=== PATIENT | female | born 1980 | race Caucasian/White ===

== ENCOUNTER → 2021-02-12 14:58 | Outpatient (CLI) | payer BC, SELFPAY ==
--- NOTE | ~2021-02-12 | MM_ITS ---
EXAMINATION: MM screening phil BI w lelo HISTORY: Screening mammogram TECHNIQUE: Craniocaudal and mediolateral oblique 3-D tomosynthesis images were obtained and synthetic 2-D images were generated. CAD analysis was submitted and interpreted. COMPARISON: None, baseline BREAST PARENCHYMAL COMPOSITION: There are scattered areas of fibroglandular density. FINDINGS: There are multiple similar appearing low-density circumscribed masses in both breasts, like ly cysts. An asymmetry is present in the middle third of the central left breast 7.5 cm from the nipp le on the craniocaudal view in line with the nipple axis. IMPRESSION: 1. Left breast asymmetry. 2. Additional mammographic views and possible breast ultrasound are recommended to evaluate for malig breezy and establish a baseline given that this is the first mammographic examination. BI-RADS Category 0: Incomplete: Needs additional imaging evaluation. Reviewed, dictated and finalized at location A. IMPRESSION: 1. Left breast asymmetry. 2. Additional mammographic views and possible breast ultrasound are recommended to evaluate for malignancy and establish a baseline given that this is the fir st mammographic examination. BI-RADS Category 0: Incomplete: Needs additional imaging evaluation.
== END ==
PROVIDERS: PCP Family Medicine; Visit Provider Obstetrics & Gynecology
DX: Z12.31 Encounter for screening mammogram for malignant neoplasm of breast (principal); R92.8 Other abnormal and inconclusive findings on diagnostic imaging of breast
CPT/HCPCS: 77063; 77067

== ENCOUNTER 2021-03-10 08:22 | Outpatient (CLI) | payer BC, SELFPAY ==
--- NOTE | ~2021-03-10 | MMUS_ITS ---
EXAMINATION: MM diagnostic phil LT w lelo, US breast LT complete HISTORY: Follow-up left breast asymmetry TECHNIQUE: Additional 3-D tomosynthesis images of the left breast were performed and synthetic 2-D im ages were generated. CAD analysis was submitted and interpreted. High resolution complete left breast ultrasound was performed. COMPARISON: 02/12/2021 BREAST PARENCHYMAL COMPOSITION: Breast composed of scattered areas of fibroglandular density. FINDINGS: MAMMOGRAPHIC FINDINGS: There is persistent asymmetry centrally in the left breast on CC view, not definitely seen on medial lateral view. No suspicious mass or architectural distortion. ULTRASOUND: Complete left breast ultrasound: At 6:00, 6 cm from the nipple, there is an oval circumscribed hypoec hoic mass with echogenic hilum, parallel orientation, no internal vascularity and no significant post erior features, likely benign intramammary lymph node. IMPRESSION: 1. Probable benign findings of the left breast. 2. Recommend 6 month follow-up diagnostic left mammogram and ultrasound BI-RADS category 3, probably benign findings. Reviewed, dictated and finalized at location A. IMPRESSION: 1. Probable benign findings of the left breast. 2. Recommend 6 month follow-up diagnostic left mammogram and ultrasound BI-RADS category 3, probably benign findings.
== END 2021-03-10 08:23 ==
PROVIDERS: PCP Family Medicine; Visit Provider Obstetrics & Gynecology
DX: R92.8 Other abnormal and inconclusive findings on diagnostic imaging of breast (principal)
CPT/HCPCS: 76641; 77061; 77065; G0279

== ENCOUNTER → 2021-09-01 07:56 | Outpatient (CLI) | payer BC, SELFPAY ==
--- NOTE | ~2021-09-01 | MMUS_ITS ---
EXAMINATION: MM diagnostic phil LT w lelo, US breast LT limited HISTORY: Follow-up left breast mass. TECHNIQUE: Additional 3-D tomosynthesis images of the left breast were performed and synthetic 2-D im ages were generated. CAD analysis was submitted and interpreted. High resolution Limited left breast ultrasound was performed. COMPARISON: Comparison to multiple prior studies sequentially, with oldest reviewed study dated 02/12. BREAST PARENCHYMAL COMPOSITION: Breast composed of scattered areas of fibroglandular density. FINDINGS: MAMMOGRAPHIC FINDINGS: There are no suspicious masses, calcifications or architectural distortion in the left breast to sugg est malignancy. ULTRASOUND: There is a stable benign-appearing 9 mm intramammary lymph node at 6:00, 6 cm from the nipple no susp icious masses to suggest malignancy. IMPRESSION: 1. No evidence for malignancy in the left breast. 2. Routine yearly screening mammogram and regular clinical breast examination are recommended. BI-RADS Category 2: Benign finding(s). Reviewed, dictated and finalized at location A. DING PARTNER IMPRESSION: 1. No evidence for malignancy in the left breast. 2. Routine yearly screening mammogram and regular clinical breast examination a re recommended. BI-RADS Category 2: Benign finding(s).
== END ==
PROVIDERS: PCP Family Medicine; Visit Provider Obstetrics & Gynecology
DX: R92.8 Other abnormal and inconclusive findings on diagnostic imaging of breast (principal)
CPT/HCPCS: 76642; 77061; 77065; G0279

== ENCOUNTER 2023-06-19 09:02 | Emergency (ER) | payer BC, SELFPAY ==
[2023-06-19 09:18] VITALS: BP 126/82; PULSE 93; RESP 16; TEMP 36.7; O2SAT 99
--- NOTE | 2023-06-19 10:03 | ED.GENADULT ---
HPI - General Adult General Chief complaint: Upper Respiratory Infection Stated complaint: cough,sore throat Time Seen by Provider: 06/19/23 10:03 Source: patient Mode of arrival: ambulatory Limitations: no limitations History of Present Illness HPI narrative: 43-year-old patient presents to [facility] today with complaints of cough and sore throat. Patient states she always has URI sinus drainage as she has chronic sinusitis but on Wednesday she started with a cough and sore throat. Patient states she has been trying trying xmiv-bfv-mmymzyl cough medicines such as DayQuil and NyQuil to help with the symptoms. Patient reports taking daily Claritin for her allergy symptoms. Patient also reports using Flonase. patient denies fevers, chest pain, dyspnea. Denies abdominal pain nausea, vomiting or diarrhea. Denies body aches and chills Related Data Home Medications Medication Instructions Recorded Confirmed atorvastatin 10 mg tablet 10 mg PO DAILY 06/19/23 06/19/23 irbesartan 150 1 tablet PO DAILY 06/19/23 06/19/23 mg-hydrochlorothiazide 12.5 mg tablet norethindrone 1 mg-ethinyl 1 tablet PO DAILY 06/19/23 06/19/23 estradiol 35 mcg tablet (Alyacen) sertraline 100 mg tablet 100 mg PO DAILY 06/19/23 06/19/23 Allergies Allergy/AdvReac Type Severity Reaction Status Date / Time No Known Allergies Allergy Unknown Verified 06/19/23 09:20 Review of Systems Review of Systems: CONSTITUTIONAL: Denies fever, chills, or sweats. EYES: Denies visual changes, redness, or discharge. ENT: Positive rhinorrhea, congestion, sore throat, or otalgia and feeling of fullness a bilateral ears. CARDIOVASCULAR: Denies chest pain, palpitations, or edema. RESPIRATORY: Positive cough, and negative for dyspnea. GASTROINTESTINAL: Denies abdominal pain, nausea, vomiting, or diarrhea. GENITOURINARY: Denies dysuria or hematuria. SKIN: Denies rash or itching. MUSCULOSKELETAL: Denies back pain, joint pain, or myalgia. NEUROLOGIC: Denies headache, numbness, or weakness. PSYCHIATRIC: Denies anxiety or depression. FORMERLY [facility], 1928–1983 Family History Family History (Updated 08/10/17 @ 16:56 by DOCTOR UNKNOWN) Father Diabetes mellitus Hypertension Family history of cardiovascular disease Sibling Diabetes mellitus Hypertension Mother Hypertension Social History Social History Smoking status: Never smoker Alcohol intake: never Exam Narrative: GENERAL: Well-appearing, well-nourished, and in no acute distress. HEAD: Normocephalic, atraumatic. EYES: PERRLA and EOMI. ENT: Nares clear, no rhinorrhea or of the right nare epistaxis. Mucous membranes moist. Bilateral ears TMs visualized pearly melchor with air bubbles, no signs of erythema or edema. Bilateral external ear canals are free of drainage, erythema, and edema. Oral mucosa is pink and moist, posterior oropharynx is has erythema with clear drainage, tonsils at 1+ position without exudate. NECK: Supple. No lymphadenopathy CHEST: Clear to auscultation. No respiratory distress. HEART: Regular rate and rhythm. No murmur heard. Normal peripheral pulses. ABDOMEN: Soft, nontender, nondistended, normal active bowel sounds. EXTREMITIES: Normal range of motion. No edema. SKIN: Warm, dry, no rash. NEURO: No focal deficits. Alert and oriented x3. Course Course Level of Care: Express Care Visit Vital Signs Vital signs: Vital Signs Temperature 36.7 C 06/19/23 09:18 Pulse Rate 93 06/19/23 09:18 Respiratory Rate 16 06/19/23 09:18 Blood Pressure 126/82 06/19/23 09:18 Pulse Oximetry 99 06/19/23 09:18 Oxygen Delivery Room Air 06/19/23 09:18 Temperature 36.7 C 06/19/23 09:18 Pulse Rate 93 06/19/23 09:18 Respiratory Rate 16 06/19/23 09:18 Blood Pressure 126/82 06/19/23 09:18 Pulse Oximetry 99 06/19/23 09:18 Oxygen Delivery Room Air 06/19/23 09:18 Vital signs reviewed Medical Decision Making MDM Narrative Medical decision making narrati
== END 2023-06-19 10:33 | disposition home or self-care (01) ==
PROVIDERS: Emergency Provider Nurse Practitioner Family; PCP Family Medicine
DX: J06.9 Acute upper respiratory infection, unspecified (principal)
CPT/HCPCS: 87081; 87880; 99213; G0463

== ENCOUNTER 2024-07-13 15:43 | Emergency (ER) | payer OTHER, SELFPAY ==
[2024-07-13 15:55] VITALS: BP 132/85; PULSE 88; RESP 18; TEMP 36.3; O2SAT 100
--- NOTE | 2024-07-13 16:04 | ED.URI ---
HPI - URI/Sore Throat General Chief Complaint: Upper Respiratory Infection Stated Complaint: Sore Throat/Ears Irritation Time Seen by Provider: 07/13/24 16:05 Source: patient, RN notes reviewed and old records reviewed Mode of arrival: ambulatory Limitations: no limitations History of Present Illness HPI Narrative: Patient presents with complaints of 2 week history of sinus pain and pressure. She reports that she has had some associated chills and lack of energy. States that she feels as though now symptoms are moving down into her chest. Says that the past couple of nights she has noticed some wheezing. States that she has an associated sore throat that is worse with coughing. Copious postnasal drip. She is able to manage own secretions, no drooling or stridor. No distress this time, including respiratory distress. She has been taking jlej-jyr-xhynvha medications for her symptoms with minimal relief Related Data Home Medications ?Medication ?Instructions ?Recorded ?Confirmed ?Last Taken ?Type atorvastatin 10 mg tablet 10 mg PO DAILY 06/19/23 06/19/23 Unknown History irbesartan 150 1 tablet PO DAILY 06/19/23 06/19/23 Unknown History mg-hydrochlorothiazide 12.5 mg tablet norethindrone 1 mg-ethinyl 1 tablet PO DAILY 06/19/23 06/19/23 Unknown History estradiol 35 mcg tablet (Alyacen) sertraline 100 mg tablet 100 mg PO DAILY 06/19/23 06/19/23 Unknown History loratadine 10 mg tablet (Claritin) 10 mg PO BID 07/13/24 07/13/24 Unknown History omeprazole 20 mg capsule,delayed 20 mg PO DAILY 07/13/24 07/13/24 Unknown History release Allergies Allergy/AdvReac Type Severity Reaction Status Date / Time No Known Allergies Allergy Unknown Verified 07/13/24 15:45 Review of Systems Review of Systems: All systems reviewed & are unremarkable except as noted in HPI and below Constitutional: Constitutional: Reports as per HPI, Reports no additional constitutional complaints, Reports chills, Reports headache(s) and Reports lethargy ENT: Reports system reviewed and no additional complaints, except as documented, Reports nasal congestion, Reports nasal discharge, Reports sinus pain, Reports sinus pressure and Reports sore throat Cardiovascular: Cardiovascular: Reports no additional cardiovascular complaints Respiratory: Respiratory: Reports no additional respiratory complaints, Reports chest congestion, Reports cough and Reports wheezing Gastrointestinal: Gastrointestinal: Reports no additional gastrointestinal complaints [facility] Family History Family History Father Diabetes mellitus Hypertension Family history of cardiovascular disease Sibling Diabetes mellitus Hypertension Mother Hypertension Social History Social History Smoking status: Never smoker Alcohol intake: never Comments At the time of my signature, I reviewed and agree with the nursing past medical, surgical, social, and family history. There is no relevant family history pertinent to the patient complaint. Exam Const: General: cooperative, no acute distress, alert and awake Orientation/consciousness: oriented to person, oriented to place and oriented to time HENMT: Head: normal to inspection Ears: TM abnormal with fluid behind the TM bilateral Face/Nose/Sinus: sinus tenderness Face and sinus: sinus tenderness maxillary Mouth: Yes moist mucous membranes Throat: posterior oropharynx abnormal erythema Resp: Effort & Inspection: normal respiratory effort and able to speak in complete sentences Auscultation: clear to auscultation bilaterally, no crackles, no rales, no rhonchi and no wheezes Cardio: Palpation: normal PMI Rate: regular rate Rhythm: regular rhythm Heart sounds: S1 normal heart sound present and S2 normal heart sound present Neuro: General: oriented to person, oriented to place and oriented to time Cranial nerves: Yes CN's II-XII intact bilaterally Psych: Appearance: grossly normal Thought process: Normal thought process present Insight: Good insight present (Psych) Judgement: Good judgement present (Psych) Course Course Level of Care: Express Care Visit Vital Signs Vital signs: Reviewed MDM - URI/Sore Throat MDM Narrative Medical decision making narrative: History and exam consistent with sinusitis. Given prevalence of community-acquired pneumonia in this area, treat with doxy rather than Augmentin. Steroid burst and albuterol inhaler for respiratory symptoms. Emergency department precautions discussed with patient. Discharge instructions reviewed with patient, as well as provided in writing per nursing staff. The instructions also include specific and strict return/GO TO THE ER as well as f/u information. All questions have been answered, and the patient deny any further questions with discharge and discharge plan. Some parts of this dictation were generated by voice recognition software and may contain typographical and/or grammatical inaccuracies. Differential Diagnosis Differential diagnosis: Likely upper respiratory infection, otitis media, sinusitis, viral infection and bronchitis Medical Records Attestation: I reviewed the patient's medical records. Discharge Plan Discharge Clinical Impression: Sinusitis Qualifiers: Sinusitis location: maxillary Chronicity: acute Recurrence: not specified as recurrent Qualified Code(s): J01.00 - Acute maxillary sinusitis, unspecified Patient Disposition: Home, Self-Care Condition: Stable Instructions: Antibiotic Form, Sinusitis (ED) Additional Instructions: Take medication as prescribed. Follow with primary care provider. Emergency department for new or worse symptoms Patient Language: Citizen Of [place] Prescriptions: New doxycycline hyclate 100 mg capsule 100 mg PO BID Qty: 20 0RF prednisone 50 mg tablet 50 mg PO DAILY Qty: 5 0RF albuterol sulfate [Ventolin HFA] 90 mcg/actuation HFA aerosol inhaler 2 puff inhalation QID PRN (Reason: shortness of breath or wheezing) Qty: 8.5 0RF No Action irbesartan-hydrochlorothiazide 150-12.5 mg tablet 1 tablet PO DAILY atorvastatin 10 mg tablet 10 mg PO DAILY sertraline 100 mg tablet 100 mg PO DAILY Alyacen (28) 1-35 mg-mcg tablet 1 tablet PO DAILY loratadine [Claritin] 10 mg tablet 10 mg PO BID omeprazole 20 mg capsule,delayed release(DR/EC) 20 mg PO DAILY Follow-up/Referrals: Hailey,Jc Montoya MD [Primary Care Provider] - 2 Weeks Stand Alone Forms: Work/School Release IP Time of Disposition: 16:11
== END 2024-07-13 16:15 | disposition home or self-care (01) ==
PROVIDERS: Emergency Provider Nurse Practitioner Family; PCP Family Medicine
DX: J01.00 Acute maxillary sinusitis, unspecified (principal); I10 Essential (primary) hypertension; E78.00 Pure hypercholesterolemia, unspecified; K21.9 Gastro-esophageal reflux disease without esophagitis; F41.9 Anxiety disorder, unspecified; F32.A Depression, unspecified
CPT/HCPCS: 99213; G0463

== ENCOUNTER 2024-09-06 14:15 | Emergency (ER) | payer OTHER, SELFPAY ==
--- NOTE | ~2024-09-06 | CT_ITS ---
CLINICAL INDICATION: Abdominal pain COMPARISON: None. TECHNIQUE: Multiple contiguous axial images of the abdomen and pelvis were performed following the ad ministration of with 100 mL Omnipaque-350 intravenous contrast The dose-length product (DLP) was 1645.74 mGy-cm. Automated exposure control and iterative reconstruction technique were employed. FINDINGS/OBSERVATIONS: Visualized lower thorax: The bilateral lung bases are clear. The heart is of normal size, without pericardial effusion. Liver: The liver enhances homogeneously and is enlarged measuring 22 cm in longitudinal dimension. Gallbladder and biliary system: The gallbladder is minimally distended, and otherwise unremarkable. Pancreas: The pancreas enhances homogeneously without ductal dilatation. Spleen: The spleen enhances homogeneously and is enlarged measuring 12 cm in longitudinal dimension. Kidneys: The bilateral kidneys enhance symmetrically without hydronephrosis or renal calculi. Adrenal glands: Unremarkable. Gastrointestinal tract: Trace fecal stasis Appendix: The air-filled appendix is of normal caliber (axial series, images 128 through 137). Vasculature: Unremarkable. No aneurysmal dilatation or significant stenosis. Lymph nodes: No pathologically enlarged or morphologically suspicious lymph nodes within the retroperitoneum or at the root of the mesentery. Pelvic structures: The bladder is decompressed., and otherwise unremarkable. The uterus is retroverted and antral flexed and otherwise unremarkable Body wall and musculoskeletal: Small fat-containing umbilical hernia. Degenerative disease at the level of L5/S1 with osteophyte formation, disc space narrowing, endplate changes and vacuum phenomena. The remainder of the lower thoracic and lumbosacral spines are unremarkable. IMPRESSION: Hepatosplenomegaly. No acute intra-abdominal findings, as detailed above. Reviewed, dictated and finalized at location A. RHANGER AND PAINTER
[2024-09-06 14:30] VITALS: PULSE 147
--- NOTE | 2024-09-06 14:30 | ECG_ITS ---
Test Date: 2024-09-06 14:40:10 Measurements Intervals [place] Rate: 125 P: 53 NC: 151 QRS: 53 QRSD: 87 T: 46 QT: 344 QTc: 496 Interpretive Statements SINUS TACHYCARDIA CONSIDER ANTERIOR INFARCT, AGE INDETERMINATE ABNORMAL ECG No previous ECG available for comparison Electronically Signed On 09-06-2024 15:07:02 THREAD TWISTER by Tripp Dougherty D.O.
[2024-09-06 15:01] LABS: Basophils Percent Auto 0.1 % (0.2-1.2); Eosinophils Percent Auto 0.1 % (0-4.4); Hematocrit 45.3 % (37.0-47.0); Hemoglobin 15.2 g/dL (12.0-15.0); Immature Granulocyte Absolute 0.05 K/mm3 (0.00-0.031); Immature Granulocyte Percent A 0.4 % (0-0.5); Lymphocytes Absolute Auto 0.37 K/mm3 (0.9-3.2); Lymphocytes Percent Auto 3.1 % (18.3-44.2); Mean Corpuscular HGB Conc 33.6 g/dl (32-36); Mean Corpuscular Hemoglobin 30.6 pg (26-34); Mean Corpuscular Volume 91.1 fl (80-100); Mean Platelet Volume 11.3 fl (7.4-10.4); Monocytes Absolute Auto 0.4 K/mm3 (0.1-0.6); Monocytes Percent Auto 3.1 % (2.6-8.5); Neutrophils Percent Auto 93.2 % (45.5-73.1); Platelet Count Result 245 k/mm3 (150-375); Red Blood Count 4.97 M/mm3 (4.2-5.4); Red Cell Distribution Width 12.9 % (11.5-14.5); White Blood Count 11.8 K/mm3 (4.5-10.0)
[2024-09-06 15:03] LABS: BEDSIDEPREGUCG Negative (Negative)
--- OUTSIDE RECORDS SUMMARY | 2024-09-06 15:09 | XMS_ITS | Referral Summary ---
Author Organization [facility] Building Address [address] [place] [address] Care Team Providers Care Cloth Tearer Name Role Phone Jc Hart DO Primary Care Provider + Allergies No known active allergies Medications norethindrone-e thin estradioL (ORTHO-NOVUM 1-35 TAB,NORTREL 1-35 TAB) 1-35 mg-mcg per tablet daily Active loratadine (CLARITIN) 10 mg tablet Take 1 tablet (10 mg total) by mouth daily Active omeprazole (PriLOSEC) 20 mg capsule Take 1 capsule (20 mg total) by mouth daily Active atorvastatin (LIPITOR) 10 mg tablet TAKE 1 TABLET DAILY 90 tablet 3 03/28/2024 Active sertraline (ZOLOFT) 100 mg tabletIndicatio ns:Anxiety TAKE 1 TABLET DAILY 90 tablet 3 03/28/2024 Active irbesartan-hydr ochlorothiazide (AVALIDE) 150-12.5 mg per tablet TAKE 1 TABLET DAILY 90 tablet 3 03/28/2024 Active Active Problems Problem Noted Date Diagnosed Date Acquired trigger finger 11/30/2022 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 04/25/2021 Otalgia of both ears 04/25/2021 Dysfunction of both eustachian tubes 01/06/2021 Seasonal allergic rhinitis due to pollen 021 Mixed hyperlipidemia 11/18/2020 Frequent falls 11/18/2020 HNP (herniated nucleus pulposus), cervical 11/18 Chronic pansinusitis 10/14/2020 Bilateral hearing loss 10/14/2020 Carpal tunnel syndrome of left wrist 09/26/2019 Fibromyalgia 04/25/2019 Anxiety 01/19/2019 Essential hypertension 01/19/2019 Gastroesophageal reflux disease without esophagi tis 01/19/2019 Body mass index (BMI) of 45.0-49.9 in adult 03/03 Chronic tonsillitis 03/30/2017 Morbid (severe) obesity due to excess calories 0 03/30/2017 Obstructive sleep apnea 03/30/2017 Tonsillolith 03/30/2017 Immunizations Name Administration Dates Next Due Influenza, Quadrivalent, Spl it, Preservative Free, Intramuscular 05/22/2021,05/20/2020,04/25/2019,05/15,05/14/2018 Influenza, Trivalent, Preser vative Free, Intramuscular 05/14/2017 Influenza, Unspecified 05/02/2022(Deferr ed: Patient Refused),05/02/2022(Deferred: Patient Refused),05/02/2018 Tdap 09/26/2019 Social History Tobacco Use Types Packs/Day Years Used Date Smoking Tobacco: Never Smokeless Tobacco: Never Tobacco Cessation:Counseling Given: Not Answered Alcohol Use Standard Drinks/Week Comments Never 0 (1 standard drink = 0.6 oz pur e alcohol) AUDIT-C Answer Date Recorded Q1: How often do you have a drink containing alc ohol? Never 12/09/2022 Average Number of Drinks Not on file 023 Frequency of Binge Drinking Not on file 11/30 PHQ-2 Answer Date Recorded PHQ-2 Total Score (If total score is 3 or more points, staff should administer the PHQ-9) 0 01/04/2023 Personal Safety Answer Date Recorded Have you ever been in or are you currently in a harmful physical or emotional relationship or is someone making you feel afraid or unsafe? 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 Gender Identity Female 03/25/2020 11:27 AM CDT Sexual Orientation Not on file Last Filed Vital Signs Vital Sign Reading Time Taken Comments Blood Pressure 130/74 01/04/2023 7:12 AM CDT Pulse 91 01/04/2023 7:12 AM CDT Temperature 35.8 C (96.5 F) 01/04/2023 7:12 AM CDT Respiratory Rate 20 01/04/2023 7:12 AM CDT Oxygen Saturation 99% 01/04/2023 7:12 AM CDT Inhaled Oxygen Concentration - - Weight 114.3 kg (252 lb) 01/04/2023 7:12 AM CDT Height 152.4 cm (5') 01/04/2023 7:12 AM CDT Body Mass Index 49.22 01/04/2023 7:12 AM CDT Plan of Treatment Not on file Procedures Procedure Name Priority Date/Time Associated Diagnosis Comments MAMMOGRAPHY Schedule Routine, Re ad Routine (OP Routine) 09/01/2021 from Last 3 Months or Most Recently Relevant to Health Maintenance Results * MAMMOGRAPHY (09/01/2021) Anatomical Region Laterality Modality Breast Mammography Historical Provider MD [facility] M[facility]MO PROCEDURES Sherie l Result from Last 3 Months or Most Recently Relevant to Health Maintenance Insurance [employer] [facility] [employer] [facility] CHOICE [facility] H[facility]/PPO Address: [address] [address] [place] [address] Care Teams Cloth Tearer Relationship Specialty Start Date End Date Jc Hart DO [facility] [address] PCP - General Family Medicine 12/02/18
--- OUTSIDE RECORDS SUMMARY | 2024-09-06 15:09 | XMS_ITS | Clinical Summary ---
Author Organization [facility] at the Medical Office Building Address [address] [place] [address] Care Team Providers Care Exhibit Carpenter Name Role Phone Jc Hart DO Primary [...] ed: Patient Refused),05/02/2022(Deferred: Patient Refused),05/02/2018 Tdap 09/26/2019 Surgical History Surgery Date Site/Laterality Comments CARPAL TUNNEL RELEASE Bilateral WISDOM TOOTH EXTRACTION Medical History Medical History Date Comments Fibromyalgia Anxiety Allergic rhinitis Hypertension GERD (gastroesophageal reflux disease) Sinusitis Family History Medical History Relation Name Comments Arthritis Brother Diabetes Brother Diabetes Father Heart disease Father Hypertension Father Relation Name Status Comments Brother Father (Age 63) Mother Alive Social History Tobacco Use Types Packs/Day Years [...] on file 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 Gender Identity Female 03/25/2020 11:27 AM CDT Sexual Orientation Not on file Obstetrics History Last Filed Vital Signs Vital Sign Reading [...] 01/04/2023 7:12 AM CDT Plan of Treatment Health Maintenance Due Date Last Done Comments Cervical Cancer Screening 1980 Hepatitis C Screening 1980 Varicella Vaccines (1 of 2 - 13+ 2-dose series) 01/21/1993 Hepatitis B Screening 01/21/1998 Breast Cancer Screening-Mammogram 09/01/2022 09/01/2021 Depression Screening 01/05/2024 01/04/2023, 05/22/2021, 11/18/2020, Additional history exists Regular Well Visit/Exam 18-64 01/05/2024 01/04/2023, 05/22/2021, 05/20/2020, Additional history exists DTaP/Tdap/Td Vaccine (2 - Td or Tdap) 09/26/2029 09/26/2019 Influenza Vaccine Completed 04/06/2024, , 05/20/2020, Additional history exists HPV Vaccines Aged Out No longer eligi ble based on patient's age to complete this topic Pneumococcal vaccine <65 Aged Out No longer eligible based on patient's age to complete this topic Procedures Procedure Name Priority Date/Time Associated Diagnosis Comments MAMMOGRAPHY Schedule Routine, Re ad Routine (OP Routine) 09/01/2021 from Last 3 Months or Most Recently Relevant to Health Maintenance Results * MAMMOGRAPHY (09/01/2021) Anatomical Region Laterality Modality Breast Mammography Historical Provider MD [facility] MAMMO PROCEDURES Sherie l Result from Last 3 Months or Most Recently Relevant to Health Maintenance Insurance [employer] [facility] CHOICE PLUS [employer] AND SON [id number] Care Teams Exhibit Carpenter Relationship Specialty Start Date End Date Jc Hart DO [address] [place] [id number] PCP - General Family Medicine 12/02/18
--- OUTSIDE RECORDS SUMMARY | 2024-09-06 15:09 | XMS_ITS | CONTINUITY OF CARE DOCUMENT ---
Author Name veronika banda Address Unknown Organization [facility] Address [address] [place] [address] [address] [place] [address] Phone [phone] Care Team Providers Care Pediatric Dietician Name Role Phone Ever Royal MD Unavailable [phone] Ever Royal MD Unavailable INSURANCE PROVIDERS Payer name Policy type / Coverage type Aby red republican ID [facility] [id number] Other [id number]
--- OUTSIDE RECORDS SUMMARY | 2024-09-06 15:09 | XMS_ITS | Encounter Summary ---
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 Historical Provider Final Res ult documented in this encounter Visit Diagnoses Not on filedocumented in this encounter Care Teams Sql Ssrs Developer Relationship Specialty Start Date End Date Jc Hart DO [address] [address] PCP - General Family Medicine 12/02/18 documented as of this encounter
--- OUTSIDE RECORDS SUMMARY | 2024-09-06 15:09 | XMS_ITS | Clinical Summary ---
Author Organization [facility] Address [address] [place] [address] Care Team Providers Care Dance Critic Name Role Phone Unavailable Primary Care Provider Unavailabl e Social History Tobacco Use Types Packs/Day Years Used Date Smoking Tobacco: Never Assessed Comments Unknown Sex and Gender Information Value Date Recorded Sex Assigned at Not on file Legal Sex Female 4:40 PM CDT Gender Identity Not on file Sexual Orientation Not on file Plan of Treatment Health Maintenance Due Date Last Done Comments Hepatitis C Virus (HCV) Screening 1980 Hepatitis B Immunization (1 of 3 - 19+ 3-dose series) 01/21/1999 Pap Smear 01/21/2001 Cervical Cancer Screening (CCS) 01/21/2010 HPV/Cotest 01/21/2010 Discussion re Starting/Frequency of Mammograms 2020 Influenza Immunization (#1) 04/02/202405/02, 04/25/2019, 05/14/2018, Additional history exists SARS-COV-2 Immunization ( - 2023- season) 2024 Respiratory Syncytial Virus (RSV) Immunization (Adult) (1 - 1-dose 75+ series) 01/21/2055 DTaP/Tdap/Td Immunization Discontinued 09/26/2019 TdaP Immunization Completed 09/26/2019 Meningococcal Immunization (ACWY) Aged Out No longer eligible based on patient's age to complete this topic Pneumococcal Immunization Combined Aged Out No longer eligible based on patient's age to complete this topic Rotavirus Immunization Aged Out No lo nger eligible based on patient's age to complete this topic Insurance [employer] on file
[2024-09-06 15:12] LABS: Alanine Aminotransferase 22 U/L (6-35); Albumin Level 4.2 g/dL (3.5-5.1); Alkaline Phosphatase 108 U/L (38-126); Anion Gap 14 mmol/L (4-12); Aspartate Amino Transferase 21 U/L (14-36); Bilirubin,Total 0.7 mg/dL (0.2-1.3); Blood Urea Nitrogen 13 mg/dL (7-17); Calcium 9.1 mg/dL (8.4-10.2); Carbon Dioxide 22 mmol/L (22-30); Chloride 106 mmol/L (98-107); Estimated CRCL calculation 108 ml/min; Estimated Glomerular Filt Rate > 60; Glucose 134 mg/dL (65-110); Lipase 47 U/L (23-300); Potassium 3.7 mmol/L (3.4-5.0); Sodium 142 mmol/L (137-145)
[2024-09-06 15:14] LABS: Add Urine Microscopic? YES; Appearance Urine Clear (Clear); Bacteria Urine None Seen /hpf; Bilirubin Urine Negative (Negative); Blood Urine Negative (Negative); Color Urine Yellow (Yellow); Glucose Urine UA Negative (Negative); Ketones Urine Trace mg/dL (Negative); Leukocyte Esterase Ur Trace LEU/UL (Negative); Nitrate Urine Negative (Negative); Non Pathogenic Casts 0-2; Protein Urine 1+ mg/dL (Negative); RBC Urine 0-2 /hpf (0-2); Specific Grav Ur 1.026 (1.001-1.035); Squamous Epithelial Cell Urine Moderate /hpf (Few); Urobilinogen Urine 0.2 mg/dL (<2.0)
--- OUTSIDE RECORDS SUMMARY | 2024-09-06 16:47 | XMS_ITS | CONTINUITY OF CARE DOCUMENT ---
Author Name veronika banda Address Unknown Organization [facility] Address [id number] [place] [address] [address] [place] [address] Phone [phone] Care Team Providers Care All Terrain Vehicle Racer Name Role Phone Ever Royal MD Unavailable [phone] Ever Royal MD Unavailable [phone] INSURANCE PROVIDERS Payer name Policy type / Coverage type Aby red alliance party ID [facility] [id number] Other [id number]
--- OUTSIDE RECORDS SUMMARY | 2024-09-06 16:47 | XMS_ITS | Referral Summary ---
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 Address: [facility] [id number] [place] [address] Long Play [place] [facility] CHOICE PLUS Care Teams Manager Services Relationship Specialty Start Date End Date Jc Hart DO [facility] [address] PCP - General Family Medicine 12/02/18
--- OUTSIDE RECORDS SUMMARY | 2024-09-06 16:47 | XMS_ITS | Continuity of Care Document ---
Author Organization [facility] Address [address] [facility] [address] [place] [address] Phone Care Team Providers Care Embossing Unit Operator Name Role Phone Raymundo Randolph MD Unavailable Unavailable Allergies, Adverse Reactions, Alerts Substance Reaction Status Criticality No Known Allergies Active No Inform ation Medications Medication Instructions Dosage Effective Dates (start - stop) Status Comments CYMBALTA (unknown strength) Not Available - Active NECON (unknown strength) Not Available - Active Procedures Procedure Date DISABILITY EXAMINATION Advance Directives Directive Yes / No Effective Date File Name No Information Encounters Encounter Description Practice Location Reason(s) For Visit Diagnoses Date Provider Providers Copied on Encounter [facility], [address] [place] [address], [facility], [phone] [facility] No Information [address] Tomasa Fonseca. [address] [place], [place], [id number] . tel: [phone] DISABILITY EXAMINATION [facility], [address] [place] [address], [address], tel:[phone] [facility] SUMIT L hand (chief complaint) Carpal tunnel syndrome of left wrist 6 Tomasa Fonseca. [address] [place], [place], [id number] . tel: [phone] Family History Family Member Type Diagnosis Age At Onset Mother Problem (finding) Alive and well Payers Payer name Insurance type Covered libertarian ID Authoriza tion(s) No Information Social History Type Description Quantity Date Captured Comments Sex Female Smoking Status No Information Chief Complaint And Reason For Visit No Information Reason For Referral Reason For Referral No Information Plan Of Treatment Date Type Action Status Referral Ordered: RADEX HAND MINIMUM 3 VIEWS LT ordered History Of Present Illness Encounter Date Complaint History Of Prese nt Illness SUMIT L hand Functional Status Date Functional Assessmen t No Information Instructions Date Instruction Additional Infor mation No Information Assessments Type Assessment Date No Information Patient Care Teams Name Effective Dates (start - stop) Status Members No Information
--- OUTSIDE RECORDS SUMMARY | 2024-09-06 16:48 | XMS_ITS | Clinical Summary ---
Author Organization [facility] Address [address] [place] [address] Care Team Providers Care Statue Carver Name Role Phone Unavailable Primary Care Provider [...]
--- OUTSIDE RECORDS SUMMARY | 2024-09-06 16:48 | XMS_ITS | Encounter Summary ---
Author Organization 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 Historical Provider Final Res ult documented in this encounter Visit Diagnoses Not on filedocumented in this encounter Care Teams Payroll And Benefits Specialist Relationship Specialty Start Date End Date Jc Hart DO [address] [address] PCP - General Family Medicine 12/02/18 documented as of this encounter
--- OUTSIDE RECORDS SUMMARY | 2024-09-06 16:48 | XMS_ITS | Clinical Summary ---
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
[2024-09-06] MEDS: SODIUM CHLORIDE 0.9% IV 1,000 ML 999 ML IV CONT (17:42)
--- NOTE | 2024-09-06 17:42 | ED.GENADULT ---
HPI - General Adult General Chief complaint: Abdominal Pain Stated complaint: abd pain, n/v/d Time Seen by Provider: 09/06/24 16:16 History of Present Illness HPI narrative: patient 44-year-old female presents emergency department with chief complaint of really bad stomach pain . Patient reports had some nausea vomiting diarrhea reports that the pain is not improved by anything. Related Data Home Medications ?Medication ?Instructions ?Recorded ?Confirmed ?Last Taken ?Type atorvastatin 10 mg tablet 10 mg PO DAILY 06/19/23 06/19/23 Unknown History irbesartan 150 1 tablet PO DAILY 06/19/23 06/19/23 Unknown History mg-hydrochlorothiazide 12.5 mg tablet norethindrone 1 mg-ethinyl 1 tablet PO DAILY 06/19/23 06/19/23 Unknown History estradiol 35 mcg tablet (Alyacen) sertraline 100 mg tablet 100 mg PO DAILY 06/19/23 06/19/23 Unknown History loratadine 10 mg tablet (Claritin) 10 mg PO BID 07/13/24 07/13/24 Unknown History omeprazole 20 mg capsule,delayed 20 mg PO DAILY 07/13/24 07/13/24 Unknown History release Allergies Allergy/AdvReac Type Severity Reaction Status Date / Time No Known Allergies Allergy Unknown Verified 09/06/24 15:02 Review of Systems Review of Systems: A 10 system review of systems was completed on the patient and is negative except for what is stated in the HPI. Nursing and ancillary documentation was reviewed. [facility] Family History Family History Father Diabetes mellitus Hypertension Family history of cardiovascular disease Sibling Diabetes mellitus Hypertension Mother Hypertension Social History Social History Smoking status: Never smoker Alcohol intake: never Exam Narrative: GENERAL: Well-appearing, well-nourished, and in no acute distress. HEAD: Normocephalic, atraumatic. EYES: PERRLA and EOMI. ENT: Nares clear, no rhinorrhea or epistaxis. Mucous membranes moist. NECK: Supple. CHEST: Clear to auscultation. No respiratory distress. HEART: Regular rate and rhythm. No murmur heard. Normal peripheral pulses. ABDOMEN: Soft, Diffuse mild tenderness, nondistended, normal active bowel sounds. EXTREMITIES: Normal range of motion. No edema. SKIN: Warm, dry, no rash. NEURO: No focal deficits. Alert and oriented x3. PSYCH: Normal mood and affect. Course Vital Signs Vital signs: Vital Signs Pulse Rate 147 H 09/06/24 14:30 Pulse Rate 147 H 09/06/24 14:30 Medical Decision Making MDM Narrative Medical decision making narrative: differential diagnosis includes UTI, gastritis, intra-abdominal infection, diverticulitis, colitis laboratory studies were obtained on the patient which showed a white count of 11.8 electrolytes are within normal limits lipase was normal urine showed 6-10 white blood cells and trace leukocyte esterase CT scan of the abdomen pelvis showed no acute abnormality the patient is feeling much better after receiving IV fluids and IV Protonix the patient will also be given a prescription for Zofran and a prescription for Protonix as well as a prescription for Keflex. Vital Signs Vital Signs: Vital Signs Pulse Rate 147 H 09/06/24 14:30 Pulse Rate 147 H 09/06/24 14:30 Lab Data 09/06/24 14:51 09/06/24 14:51 Labs: Lab Results 09/06/24 09/06/24 09/06/24 Range/Units 14:51 14:52 15:02 WBC 11.8 H (4.5-10.0) K/mm3 RBC 4.97 (4.2-5.4) M/mm3 Hgb 15.2 H (12.0-15.0) g/dL Hct 45.3 (37.0-47.0) % MCV 91.1 (80-100) fl MCH 30.6 (26-34) pg MCHC 33.6 (32-36) g/dl RDW 12.9 (11.5-14.5) % Plt Count 245 (150-375) k/mm3 MPV 11.3 H (7.4-10.4) fl Immature Gran % (Auto) 0.4 (0-0.5) % Neut % (Auto) 93.2 H (45.5-73.1) % Lymph % (Auto) 3.1 L (18.3-44.2) % [place] % (Auto) 3.1 (2.6-8.5) % Eos % (Auto) 0.1 (0-4.4) % Baso % (Auto) 0.1 L (0.2-1.2) % Lymph # (Auto) 0.37 L (0.9-3.2) K/mm3 [place] # (Auto) 0.4 (0.1-0.6) K/mm3 Eos # (Auto) 0.0 (0-0.3) K/mm3 Baso # (Auto) 0.0 (0.0-0.1) K/mm3 Abs Immat Gran (auto) 0.05 H (0.00-0.031) K/mm3 Absolute Neuts (auto) 11.0 H (1.3-6.7) K/mm3 Absolute Nucleated RBC 0.000 (0.0-0.012) K/mm3 Nucleated RBC % 0.0 (0.0-0.2) % Sodium 142 (137-145) mmol/L Potassium 3.7 (3.4-5.0) mmol/L Chloride 106 (98-107) mmol/L Carbon Dioxide 22 (22-30) mmol/L Anion Gap 14 H (4-12) mmol/L BUN 13 (7-17) mg/dL Creatinine 0.67 L (0.7-1.0) mg/dL Estim Creat Clear Calc 108 ml/min Estimated GFR > 60 (59 - ) Glucose 134 H (65-110) mg/dL Calcium 9.1 (8.4-10.2) mg/dL Total Bilirubin 0.7 (0.2-1.3) mg/dL AST 21 (14-36) U/L ALT 22 (6-35) U/L Alkaline Phosphatase 108 (38-126) U/L Total Protein 8.0 (6.3-8.2) g/dL Albumin 4.2 (3.5-5.1) g/dL Lipase 47 (23-300) U/L Urine Color Yellow (Yellow) Urine Appearance Clear (Clear) Urine pH 6.0 (5.0-9.0) Ur Specific [place] 1.026 (1.001-1.035) Urine Protein 1+ H (Negative) mg/dL Urine Glucose (UA) Negative (Negative) mg/dL Urine Ketones Trace H (Negative) mg/dL Ur Blood (Man) Negative (Negative) Urine Nitrate Negative (Negative) Urine Bilirubin Negative (Negative) Urine Urobilinogen 0.2 (<2.0) mg/dL Leukocyte Esterase Rfl Trace H (Negative) CHACE/UL Urine RBC 0-2 (0-2) /hpf Urine WBC 6-10 H (0-3) /hpf Ur Squamous Epith Cells Moderate (Few) /hpf Urine Bacteria None seen /hpf Urine Casts 0-2 POC Urine HCG, Qual Negative (Negative) Discharge Plan Discharge Clinical Impression: Abdominal pain, UTI (urinary tract infection), Gastritis Patient Disposition: Home, Self-Care Condition: Stable Instructions: Antibiotic Form, Gastritis (ED), Urinary Tract Infection in Women (ED), Abdominal Pain (ED) Patient Language: Belarusian Prescriptions: New cephalexin 500 mg capsule 500 mg PO Q12H 7 Days Qty: 14 0RF pantoprazole [Protonix] 40 mg tablet,delayed release (DR/EC) 40 mg PO HS 28 Days Qty: 28 0RF ondansetron 4 mg tablet,disintegrating 4 mg PO Q8H PRN (Reason: nausea and vomiting) Qty: 10 0RF No Action irbesartan-hydrochlorothiazide 150-12.5 mg tablet 1 tablet PO DAILY atorvastatin 10 mg tablet 10 mg PO DAILY sertraline 100 mg tablet 100 mg PO DAILY Alyacen 135 (28) 1-35 mg-mcg tablet 1 tablet PO DAILY loratadine [Claritin] 10 mg tablet 10 mg PO BID omeprazole 20 mg capsule,delayed release(DR/EC) 20 mg PO DAILY doxycycline hyclate 100 mg capsule 100 mg PO BID Qty: 20 0RF prednisone 50 mg tablet 50 mg PO DAILY Qty: 5 0RF albuterol sulfate [Ventolin HFA] 90 mcg/actuation HFA aerosol inhaler 2 puff inhalation QID PRN (Reason: shortness of breath or wheezing) Qty: 8.5 0RF Follow-up/Referrals: Hailey,Jc Montoya MD [Primary Care Provider] - Time of Disposition: 18:17
[2024-09-06] MEDS: ONDANSETRON INJ 4 MG/2 ML VIAL IV PUSH (17:44)
[2024-09-06] MEDS: PANTOPRAZOLE SODIUM IV 40 MG VIAL IV PUSH (17:46)
[2024-09-06 18:26] VITALS: BP 152/94; PULSE 114; RESP 20; O2SAT 98
== END 2024-09-06 18:27 | disposition home or self-care (01) ==
PROVIDERS: Emergency Provider Emergency Medicine; PCP Family Medicine
DX: N39.0 Urinary tract infection, site not specified (principal); K29.70 Gastritis, unspecified, without bleeding
CPT/HCPCS: 36415; 74177; 80053; 81001; 81025; 83690; 85025; 93005; 96361; 96374; 96375; 99284; J2405; J2470; J7030; Q9967

== ENCOUNTER 2025-04-10 10:38 | Emergency (ER) | payer OTHER, SELFPAY ==
[2025-04-10 10:47] VITALS: BP 129/79; PULSE 98; RESP 20; TEMP 36.7; O2SAT 97
--- NOTE | 2025-04-10 10:48 | ED.URI ---
HPI - URI/Sore Throat General Chief Complaint: Upper Respiratory Infection Stated Complaint: sinus irritation Time Seen by Provider: 04/10/25 10:53 Source: patient and RN notes reviewed Mode of arrival: ambulatory Limitations: no limitations History of Present Illness HPI Narrative: 45-year-old female presents concern for sinus congestion, drainage, sinus pressure for 2 weeks. Reports it has gotten worse over the last few days. She reports she has tried [id number] medications without relief. She reports she feels clammy today. She reports she is starting to cough MD elicited complaint: nasal congestion and sinus pain Related Data Home Medications ?Medication ?Instructions ?Recorded ?Confirmed ?Last Taken ?Type atorvastatin 10 mg tablet 10 mg PO DAILY 06/19/23 06/19/23 Unknown History irbesartan 150 1 tablet PO DAILY 06/19/23 06/19/23 Unknown History mg-hydrochlorothiazide 12.5 mg tablet norethindrone 1 mg-ethinyl 1 tablet PO DAILY 06/19/23 06/19/23 Unknown History estradiol 35 mcg tablet (Alyacen) sertraline 100 mg tablet 100 mg PO DAILY 06/19/23 06/19/23 Unknown History loratadine 10 mg tablet (Claritin) 10 mg PO BID 07/13/24 07/13/24 Unknown History omeprazole 20 mg capsule,delayed 20 mg PO DAILY 07/13/24 07/13/24 Unknown History release Allergies Allergy/AdvReac Type Severity Reaction Status Date / Time No Known Allergies Allergy Unknown Verified 04/10/25 10:56 Review of Systems Review of Systems: CONSTITUTIONAL: Denies malaise, chills, sweats, or fever. EYES: Denies visual changes, redness, or discharge. ENT: Reports rhinorrhea, congestion, sinus pain, otalgia and sore throat. CARDIOVASCULAR: Denies chest pain, palpitations, or edema. RESPIRATORY: Reports cough. Denies dyspnea. GASTROINTESTINAL: Denies abdominal pain, nausea, vomiting, diarrhea SKIN: Denies rash or itching. MUSCULOSKELETAL: Denies myalgia. NEUROLOGIC: Denies headache. All systems reviewed & are unremarkable except as noted in HPI and below PMFSH Family History Family History Father Diabetes mellitus Hypertension Family history of cardiovascular disease Sibling Diabetes mellitus Hypertension Mother Hypertension Social History Social History Smoking status: Never smoker Alcohol intake: never Comments At time of signature, agree with nursing past medical, surgical, social and family history. There is no relevant family history pertinent to the presenting complaint Exam Narrative: GENERAL: Well-appearing, well-nourished, and in no acute distress. HEAD: Normocephalic EYES: PERRLA, conjunctivae clear ENT: Nares clear, turbinates edematous and erythematous. Mucous membranes moist. TM pearly melchor with dull light reflex bilaterally; no tragal tenderness. Oropharynx not erythematous without lesions. Tonsils not enlarged and without exudate, no drooling, no hoarseness, no trismus, uvula midline. NECK: Supple. No lymphadenopathy CHEST: Clear to auscultation, breath sounds equal. No wheezing, rhonchi, rales, or stridor. No respiratory distress, speaks in full sentences. HEART: Regular rate and rhythm. No murmur heard. SKIN: Warm, dry, no rash. NEURO: Alert and oriented x3. PSYCH: Normal mood and affect Course Course Emergency Course: Patient is aware of diagnosis, understands and agrees to treatment plan. Anticipatory guidance given. Patient agrees to follow-up as directed and is aware of reasons to seek care at the emergency department. Portions of this record may have been created with voice recognition software Level of Care: Express Care Visit Vital Signs Vital signs: Vital Signs Temperature 98.1 F 04/10/25 10:47 Pulse Rate 98 04/10/25 10:47 Respiratory Rate 20 04/10/25 10:47 Blood Pressure 129/79 04/10/25 10:47 Pulse Oximetry 97 04/10/25 10:47 Oxygen Delivery Room Air 04/10/25 10:47 Temperature 98.1 F 04/10/25 10:47 Pulse Rate 98 04/10/25 10:47 Respiratory Rate 20 04/10/25 10:47 Blood Pressure 129/79 04/10/25 10:47 Pulse Oximetry 97 04/10/25 10:47 Oxygen Delivery Room Air 04/10/25 10:47 Reviewed. MDM - URI/Sore Throat MDM Narrative Medical decision making narrative: Differential diagnosis considered: Lopes virus, strep pharyngitis, allergic rhinitis, upper respiratory tract infection, sinusitis, rhinosinusitis, nasopharyngitis. viral pharyngitis, otitis media, otitis externa, pneumonia, bronchitis, viral cough syndrome, viral syndrome, and influenza. Exam findings show no acute concerns or changes; patient is non-toxic appearing and is in no distress. Patient is appropriate for outpatient treatment and follow-up. Lab Data Attestation: I reviewed the patient's lab results. Critical Care Time Critical Care Time Critical Care Time: No Discharge Plan Discharge Clinical Impression: Sinusitis Patient Disposition: Home Condition: Stable Instructions: Antibiotic Form, Sinusitis (ED) Additional Instructions: Take medication as prescribed Nonprescription pain medications, such as acetaminophen (eg, Tylenol) or ibuprofen (eg, Motrin, Advil), are recommended for pain. Flushing the nose and sinuses with a saline solution several times per day has been proven to decrease pain associated with congestion and shorten the duration of symptoms. Nasal steroids (such as Flonase, 2 sprays in each nostril daily) can help to reduce swelling inside the nose, usually within two to three days. These drugs have few side effects and relieve symptoms in most people. Medications to thin secretions (such as guaifenesin) may help to clear mucus. Please follow-up with your primary care doctor in the next 1-2 days. If you cannot follow-up with your primary care doctor please go to the ED for any urgent issues. If you have any worsening of symptoms or any other concerns please go to the ED immediately. Patient Language: Vietnamese Prescriptions: New methylprednisolone [Medrol (Yoni)] 4 mg tablets,dose pack See Rx Instructions .ROUTE .COMPLEX Qty: 21 0RF Rx Instructions: orally per package directions amoxicillin-pot clavulanate 875-125 mg tablet 1 tablet PO Q12H 10 Days Qty: 20 0RF No Action irbesartan-hydrochlorothiazide 150-12.5 mg tablet 1 tablet PO DAILY atorvastatin 10 mg tablet 10 mg PO DAILY sertraline 100 mg tablet 100 mg PO DAILY Alyacen (28) 1-35 mg-mcg tablet 1 tablet PO DAILY loratadine [Claritin] 10 mg tablet 10 mg PO BID omeprazole 20 mg capsule,delayed release(DR/EC) 20 mg PO DAILY doxycycline hyclate 100 mg capsule 100 mg PO BID Qty: 20 0RF prednisone 50 mg tablet 50 mg PO DAILY Qty: 5 0RF albuterol sulfate [Ventolin HFA] 90 mcg/actuation HFA aerosol inhaler 2 puff inhalation QID PRN (Reason: shortness of breath or wheezing) Qty: 8.5 0RF cephalexin 500 mg capsule 500 mg PO Q12H 7 Days Qty: 14 0RF pantoprazole [Protonix] 40 mg tablet,delayed release (DR/EC) 40 mg PO HS 28 Days Qty: 28 0RF ondansetron 4 mg tablet,disintegrating 4 mg PO Q8H PRN (Reason: nausea and vomiting) Qty: 10 0RF Follow-up/Referrals: Hailey,Jc Montoya MD [Primary Care Provider, Unknown] Stand Alone Forms: Work/School Release IP Time of Disposition: 10:57
== END 2025-04-10 11:05 | disposition home or self-care (01) ==
PROVIDERS: Emergency Provider Nurse Practitioner; PCP Family Medicine
DX: J32.9 Chronic sinusitis, unspecified (principal); I10 Essential (primary) hypertension; E78.00 Pure hypercholesterolemia, unspecified; K21.9 Gastro-esophageal reflux disease without esophagitis; F41.9 Anxiety disorder, unspecified; F32.A Depression, unspecified
CPT/HCPCS: 99213; G0463

== ENCOUNTER 2025-04-28 08:42 | Outpatient (CLI) | payer OTHER, SELFPAY ==
--- OUTSIDE RECORDS SUMMARY | 2025-04-28 08:46 | XMS_ITS | Encounter Summary ---
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 Gender Identity Female 03/25/2020 11:27 AM CDT Sexual Orientation Not on file documented as of this encounter Plan of Treatment Upcoming Encounters Date Type Department Care Team (Latest Contact Info) Description 05/01/2025 11:05 AM CDT Hospital Encounter [facility] [place] [address] [place] [id number] Pema Rocha MD [address] [place] [address] DR BLANC [address] [place] [id number] 05/01/2025 11:05 AM CDT - 05/01/2025 11:46 AM CDT Surgery [facility] [place] [address] [place] [address] Pema Rocha MD [address] [place] [address] DR BLANC [address] [place] [phone] RIGHT THUMB A1 MARISA RELEASE Scheduled Procedures Name Priority Associated Diagnoses Date/Ti me RELEASE TRIGGER FINGER Trigger finger of right thumb 05/01/2025 11:05 AM CDT documented as of this encounter Procedures Procedure Name Priority Date/Time Associated Diagnosis Comments PROCEDURE - RESULT 10/05/2016 12 :00 AM 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 us Historical Provider MD Final Res ult documented in this encounter Visit Diagnoses Not on filedocumented in this encounter Care Teams Power Originator Relationship Specialty Start Date End Date Jc Hart DO [address] [place] [phone] PCP - General Family Medicine 12/02/18 documented as of this encounter
--- OUTSIDE RECORDS SUMMARY | 2025-04-28 08:46 | XMS_ITS | Clinical Summary ---
Author Organization [facility] Address [address] [place] [address] Care Team Providers Care Dramatic Director Name Role Phone Unavailable Primary Care Provider [...] 19+ 3-dose series) 01/21/1999 Pap Smear 01/21/2001 Human Papillomavirus (HPV) Immunization (1 - 3-dose SCDM series) 01/21/2007 Cervical Cancer Screening (CCS) 01/21/2010 HPV/Cotest 01/21/2010 SARS-COV-2 Immunization ( season) 2024 Cologuard 01/21/2025 Colonoscopy 01/21/2025 Colorectal Cancer Screening 01/21/2025 Immunochemical Fecal Occult Blood 01/21/2025 Influenza Immunization (#1) 04/02/202505/02, 04/25/2019, 05/14/2018, Additional history exists Respiratory Syncytial Virus (RSV) Immunization (Adult) (1 [...]
--- OUTSIDE RECORDS SUMMARY | 2025-04-28 08:46 | XMS_ITS | Clinical Summary ---
Author Organization [facility] Address [address] [place] [address] Care Team Providers Care Magazine Keeper Name Role Phone Jc Hart DO Primary Care Provider + Allergies No known active allergies Medications norethindrone-e thin estradioL (ORTHO-NOVUM 1-35 TAB,NORTREL 1-35 TAB) 1-35 mg-mcg per tablet daily Active loratadine (CLARITIN) 10 mg tablet Take 1 tablet (10 mg total) by mouth daily Active atorvastatin (LIPITOR) 10 mg tablet TAKE 1 TABLET DAILY 90 tablet 3 03/28/20 24 Active sertraline (ZOLOFT) 100 mg tabletIndicatio ns:Anxiety TAKE 1 TABLET DAILY 90 tablet 3 03/28/20 24 Active irbesartan-hydr ochlorothiazide (AVALIDE) 150-12.5 mg per tablet TAKE 1 TABLET DAILY 90 tablet 3 03/28/20 24 Active amoxicillin-cla vulanate (AUGMENTIN) 875-125 mg per tablet Take 1 tablet by mouth every 12 (twelve) hours for 10 days 04/10/20 25 Active methylPREDNISol one (MEDROL DOSEPACK) 4 mg Dosepack TAKE 6 TABLETS ON DAY 1 DIRECTED ON PACKAGE AND DECREASE BY 1 TAB EACH DAY FOR A TOTAL OF 6 DAYS 04/10/[address] (PROTONIX) 40 mg EC tabletIndicatio ns:Gastroesopha geal reflux disease without esophagitis TAKE 1 TABLET DAILY 90 tablet 3 04/20/[address] (PROTONIX) 40 mg EC tabletIndicatio ns:Gastroesopha geal reflux disease without esophagitis Take 1 tablet (40 mg total) by mouth daily 90 tablet 1 09/29/19 025 Discontinued Active Problems Problem Noted Date Diagnosed Date Trigger finger of right thumb 04/19/2025 Acquired trigger finger 11/30/2022 Refractory obstruction of [...] 03/30/2017 Obstructive sleep apnea 03/30/2017 Tonsillolith 03/30/2017 Encounters Date Type Department Care Team Description 04/19/2025 8:45 AM CDT Office Visit [facility] [address] [place] [phone] Pema Rocha MD Trigger finger of right thumb (Primary Dx) from Last 3 Months Immunizations Immunization Administration Dates Next Due Influenza, Quadrivalent, Spl [...] on file 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 Gender Identity Female 03/25/2020 11:27 AM CDT [...] 01/04/2023 7:12 AM CDT Plan of Treatment Upcoming Encounters Date Type Department Care Team (Latest Contact Info) Description 05/01/2025 11:05 AM CDT Hospital Encounter [address] [address] Pema Rocha MD [address] [place] [address] [address] [place] [address] 05/01/2025 11:05 AM CDT - 05/01/2025 11:46 AM CDT Surgery [facility] [place] [address] [place] [address] Pema Rocha MD [address] [place] [address] [address] [place] [address] RIGHT THUMB A1 MARISA RELEASE Scheduled Procedures Name Priority Associated Diagnoses Date/Ti me RELEASE TRIGGER FINGER Trigger finger of right thumb 05/01/2025 11:05 AM CDT Health Maintenance Due Date Last Done Comments Cervical Cancer Screening 1980 Colon Cancer Screening-Colonoscopy 1980 Hepatitis C Screening 1980 Varicella Vaccines (1 of 2 - 13+ 2-dose series) 01/21/1993 Hepatitis B Screening 01/21/1998 HPV Vaccines (1 - 3-dose SCDM series) 01/21/2007 Breast Cancer Screening-Mammogram 09/01/2022 09/01/2021 Depression Screening 01/05/2024 01/04/2023, 05/22/2021, 11/18/2020, Additional history exists Regular Well Visit/Exam 18-64 01/05/2024 01/04/2023, 05/22/2021, 05/20/2020, Additional history exists Influenza Vaccine (#1) 2025 , 05/22/2021, 05/20/2020, Additional history exists DTaP/Tdap/Td Vaccine (2 - Td or Tdap) 09/26/2029 09/26/2019 Pneumococcal vaccine <65 Aged Out No longer eligible based on patient's age to complete this topic Procedures Procedure Name Priority Date/Time Associated Diagnosis Comments MAMMOGRAPHY Schedule Routine, Re ad Routine (OP Routine) 09/01/2021 from Last 3 Months or Most Recently Relevant to Health Maintenance Results * MAMMOGRAPHY (09/01/2021) Anatomical Region Laterality Modality Breast Mammography us Historical Provider MD [facility] MAMMO PROCEDURES Sherie l Result from Last 3 Months or Most Recently Relevant to Health Maintenance Insurance [facility] CHO[facility] PL[facility] H[facility]/PPO Address: [address] [address] [place] [address] CHUBB AND SON [id number] Care Teams Magazine Keeper Relationship Specialty Start Date End Date Jc Hart DO [address] [place] [id number] PCP - General Family Medicine 12/02/18
[2025-04-29 06:07] LABS: FSH 7.4 mIU/mL (.); LH 1.3 mIU/mL (.)
== END 2025-04-28 08:43 | disposition home or self-care (01) ==
LOC: ANHLAB 08:44
PROVIDERS: PCP Family Medicine; Visit Provider Obstetrics & Gynecology
DX: N95.1 Menopausal and female climacteric states (principal)
CPT/HCPCS: 83001; 83002

== ENCOUNTER 2025-05-29 10:00 | Emergency (ER) | payer OTHER, SELFPAY ==
--- NOTE | 2025-05-29 10:08 | ED.URI ---
HPI - URI/Sore Throat General Chief Complaint: Upper Respiratory Infection Stated Complaint: Sinus Time Seen by Provider: 05/29/25 10:09 Source: patient, RN notes reviewed and old records reviewed Mode of arrival: ambulatory Limitations: no limitations History of Present Illness HPI Narrative: 45-year-old female presents to the [facility] with sinus pressure, ear pressure since , 5 days. Has taken an [id number] cold and flu medication. Denies fevers. Onset (ago): day(s) Treatments prior to arrival: cold medicine Related Data Home Medications ?Medication ?Instructions ?Recorded ?Confirmed ?Last Taken ?Type atorvastatin 10 mg tablet 10 mg PO DAILY 06/19/23 05/29/25 Unknown History irbesartan 150 1 tablet PO DAILY 06/19/23 05/29/25 Unknown History mg-hydrochlorothiazide 12.5 mg tablet norethindrone 1 mg-ethinyl 1 tablet PO DAILY 06/19/23 05/29/25 Unknown History estradiol 35 mcg tablet (Alyacen) sertraline 100 mg tablet 100 mg PO DAILY 06/19/23 05/29/25 Unknown History loratadine 10 mg tablet (Claritin) 10 mg PO BID 07/13/24 05/29/25 Unknown History lactobacillus combination no.4 3 3,000 mmu cells PO DAILY 04/12/25 05/29/25 Unknown History billion cell capsule (Probiotic) Allergies Allergy/AdvReac Type Severity Reaction Status Date / Time No Known Allergies Allergy Unknown Verified 05/29/25 10:01 Review of Systems Review of Systems: All systems reviewed & are unremarkable except as noted in HPI and below Constitutional: Constitutional: Reports no additional constitutional complaints ENT: Reports as per HPI, Reports otalgia, Reports nasal congestion and Denies throat swelling Cardiovascular: Cardiovascular: Reports no additional cardiovascular complaints, Denies chest pain and Denies dyspnea Respiratory: Respiratory: Reports no additional respiratory complaints, Denies chest congestion, Denies cough and Denies dyspnea Musculoskeletal: Musculoskeletal: Reports no additional musculoskeletal complaints Integumentary/Breasts: Skin/Breast: Reports system reviewed and no additional complaints, except as docu PMFSH Past Medical History Medical History GERD without esophagitis Fibromyalgia Essential (primary) hypertension Dyslipidemia Anxiety Surgical History Surgical History [place] teeth removed H/O hand surgery Family History Family History Father Diabetes mellitus Hypertension Family history of cardiovascular disease Sibling Diabetes mellitus Hypertension Mother Hypertension Social History Social History Smoking status: Never smoker Alcohol intake: never Substance use: never Comments At the time of my signature, I reviewed and agree with the nursing past medical, surgical, social, and family history. There is no relevant family history pertinent to the patient complaint. Exam Const: General: cooperative, healthy appearing, comfortable, no acute distress, well developed, alert and well nourished Nutritional Appearance: well nourished and obese Orientation/consciousness: patient oriented x3 Limitations: no limitations HENMT: Head: normal to inspection Ears: hearing grossly normal bilaterally, external ears normal, EAC's normal, mastoids normal, no periauricular adenopathy and TM abnormal with fluid behind the TM bilateral; not erythematous and with no loss of landmarks Face/Nose/Sinus: Normal external nose present, Normal nares present and No nasal discharge present Face and sinus: normal facial exam, sinuses nontender, face symmetric, no ecchymosis and no erythema Mouth: Yes Normal oral and palatal mucosa present, Yes lip normal, Yes tongue normal and Yes moist mucous membranes Throat: posterior oropharynx normal, uvula midline, postnasal drainage and no uvular edema Eyes: General: appearance normal, both eyes and all related structures Alignment and Position: alignment normal Neck: Neck: normal visual inspection, full ROM, no lymphadenopathy and no meningeal signs Chest: Chest palpation & inspection: normal inspection of the chest Resp: Effort & Inspection: normal respiratory effort and able to speak in complete sentences Auscultation: clear to auscultation bilaterally, no crackles, no rales, no rhonchi and no wheezes Cardio: Rate: regular rate Skin: General skin exam: normal color and no rashes or lesions noted Neuro: General: patient oriented x3, gait normal, moves all extremities and no meningeal signs Cognition (Neuro): normal cognition Speech: normal speech Gait exam (Neuro): Normal gait present Extrem: General: normal to inspection, full ROM, capillary refill normal and normal gait Psych: Appearance: grossly normal and well kempt Mental Status: mental status grossly normal Speech and movement: Normal speech and movement present and Clear speech present Affect: normal affect Attitude: cooperative Course Course Level of Care: Express Care Visit Vital Signs Vital signs: Vital Signs Temperature 98.1 F 05/29/25 10:09 Pulse Rate 105 H 05/29/25 10:09 Respiratory Rate 18 05/29/25 10:09 Blood Pressure 114/70 05/29/25 10:09 Pulse Oximetry 97 05/29/25 10:09 Oxygen Delivery Room Air 05/29/25 10:09 Temperature 98.1 F 05/29/25 10:09 Pulse Rate 105 H 05/29/25 10:09 Respiratory Rate 18 05/29/25 10:09 Blood Pressure 114/70 05/29/25 10:09 Pulse Oximetry 97 05/29/25 10:09 Oxygen Delivery Room Air 05/29/25 10:09 Reviewed MDM - URI/Sore Throat MDM Narrative Medical decision making narrative: Patient sitting comfortably in exam room. Patient is nontoxic, vitals stable. Patient 5 day history of postnasal drainage, ear pressure, sinus pressure. No acute findings other than postnasal drainage, clear fluid behind TMs. Patient 1 month ago on steroids and antibiotics. Patient is appropriate for outpatient treatment with close follow-up Discharge instructions reviewed with patient, as well as provided in writing per nursing staff. The instructions also include specific and strict return/GO TO THE ER as well as f/u information. All questions have been answered, and the patient deny any further questions with discharge and discharge plan. Some parts of this dictation were generated by voice recognition software and may contain typographical and/or grammatical inaccuracies. Differential Diagnosis Differential diagnosis: Likely upper respiratory infection, otitis media, sinusitis, viral infection, bronchitis, influenza and pharyngitis Critical Care Time Critical Care Time Critical Care Time: No Discharge Plan Discharge Clinical Impression: Upper respiratory infection Qualifiers: URI type: unspecified viral URI Qualified Code(s): J06.9 - Acute upper respiratory infection, unspecified Patient Disposition: Home Condition: Stable Instructions: Antibiotic Form, Upper Respiratory Infection (ED), Fluid In The Ear (Serous Otitis Media) (ED), Postnasal Drip (DC) Additional Instructions: Your symptoms are likely due to a viral illness, which is not treated with antibiotics. Typically viral infections last 7-10 days, can linger for couple of weeks. It is very important to treat your symptoms. Drink plenty of water, Gatorade, Pedialyte, ice pops or Jell-O. -Alternate Tylenol and Motrin per package directions for fever or pain. You can alternate every 4 hours -Antihistamine medication such as Zyrtec/Claritin/Adriana during the day can help improve symptoms. -doing daily nasal irrigations can help relieve pressure your sinuses. Things like a Neti pot -Use Flonase twice a day for 5 days then daily to help reduce the inflammation and dry up your sinuses. -You can also use Mucinex. Be sure to drink plenty of water with this medication at least 8 ounces with every dose and it is important to drink 8 to 10 glasses of water per day. Water is a natural decongestant -Eat and drink things that are easy to swallow, like tea or soup, or popsicles. -Oral rinses such as: Salt water gargles and/or may use topical anesthetic (eg. Chloraseptic spray) or lozenges to relieve dryness or throat pain). -Frequent hand washing or hand communications department chairperson is one of the best ways to prevent spread of infection. -Using a vaporizer or humidifier at night will also help thin secretions and help with coughing up phlegm. -Follow up with primary care provider in 7-10 days if condition is not improving - For new or worsening symptoms go directly to the nearest ER Patient Language: South African Prescriptions: New fluticasone propionate [24 Hour Allergy Relief] 50 mcg/actuation spray,suspension 2 spray intranasal DAILY Qty: 16 0RF Rx Instructions: administer into each nostril No Action irbesartan-hydrochlorothiazide 150-12.5 mg tablet 1 tablet PO DAILY atorvastatin 10 mg tablet 10 mg PO DAILY sertraline 100 mg tablet 100 mg PO DAILY Alyacen () 1-35 mg-mcg tablet 1 tablet PO DAILY loratadine [Claritin] 10 mg tablet 10 mg PO BID Probiotic 3 billion cell capsule 3,000 mmu cells PO DAILY Rx Instructions: administer with a meal pantoprazole [Protonix] 40 mg tablet,delayed release (DR/EC) 40 mg PO HS 28 Days Qty: 28 0RF Follow-up/Referrals: Hailey,Jc Montoya MD [Primary Care Provider, Unknown] - 1 Week Clinical Impression: Upper respiratory infection Stand Alone Forms: Work/School Release IP Time of Disposition: 10:25
[2025-05-29 10:09] VITALS: BP 114/70; PULSE 105; RESP 18; TEMP 36.7; O2SAT 97
== END 2025-05-29 10:38 | disposition home or self-care (01) ==
PROVIDERS: Emergency Provider Nurse Practitioner; PCP Family Medicine
DX: J06.9 Acute upper respiratory infection, unspecified (principal); I10 Essential (primary) hypertension; E78.5 Hyperlipidemia, unspecified; M79.7 Fibromyalgia; K21.9 Gastro-esophageal reflux disease without esophagitis; F41.9 Anxiety disorder, unspecified
CPT/HCPCS: 99213; G0463